=== PATIENT | male | born 1980 | race Caucasian/White ===

== ENCOUNTER 2024-12-01 10:13 | Emergency (ER) | payer BC, SELFPAY ==
[2024-12-01 10:15] VITALS: BP 132/98; PULSE 94; RESP 18; TEMP 36.8; O2SAT 96; BMI 32.8
--- NOTE | 2024-12-01 10:32 | CT_ITS ---
EXAM: CT Abdomen and Pelvis With Intravenous Contrast CLINICAL INDICATION: ABD PAIN N/V/D TECHNIQUE: Axial computed tomography images of the abdomen and pelvis with intravenous contrast. This CT exam was performed using one or more of the following dose reduction techniques: automated exposure control, adjustment of the mA and/or kV according to patient size, and/or use of iterative reconstruction technique. COMPARISON: No relevant prior studies available. FINDINGS: LUNG BASES: Unremarkable. No mass. No consolidation. MEDIASTINUM: Small esophageal hiatal hernia. ABDOMEN: LIVER: Hepatomegaly with fatty infiltration. GALLBLADDER AND BILE DUCTS: Unremarkable. No calcified stones. No ductal dilation. PANCREAS: Unremarkable. No mass. No ductal dilation. SPLEEN: Unremarkable. No splenomegaly. ADRENALS: Unremarkable. No mass. KIDNEYS AND URETERS: Unremarkable. No stones within either kidney. No hydronephrosis. STOMACH AND BOWEL: Fluid-filled nondistended small bowels may represent enteritis. No bowel obstruction or pneumoperitoneum. PELVIS: APPENDIX: No findings to suggest acute appendicitis. BLADDER: Unremarkable. No mass. REPRODUCTIVE: Unremarkable as visualized. ABDOMEN and PELVIS: INTRAPERITONEAL SPACE: See above. BONES/JOINTS: No acute fracture. No dislocation. SOFT TISSUES: Inguinal hernia, bilaterally. Umbilical hernia containing fat. VASCULATURE: Scattered calcified atherosclerotic disease of aorta. No abdominal aortic aneurysm. LYMPH NODES: Unremarkable. No enlarged lymph nodes. CT/Abdomen/Pelvis W IV Cont ONLY IMPRESSION: 1. Fluid-filled nondistended small bowels may represent enteritis. No bowel o bstruction or pneumoperitoneum. 2. Small esophageal hiatal hernia. 3. Hepatomegaly with fatty infiltration. 4. Inguinal hernia, bilaterally. 5. No obstructive uropathy. 6. Umbilical hernia containing fat. Reading [facility]
--- NOTE | 2024-12-01 10:33 | EX.ED.DYSGE1 ---
HPI History of Present Illness Chief Complaint: Abd Pain Informant: patient and spouse/S.O. Narrative Narrative: 44-year-old male presenting to the emergency room with the chief complaint of vomiting diarrhea and abdominal pain. Patient states that 2 weeks ago he began taking increased dose of Ozempic. He states he had some small GI symptoms but they resolved. Took a second dose last Sunday saw his doctor on Sunday and going into began to experience some diarrhea and nausea if occultly tolerating foods. He had significant diarrhea last night and upper abdominal pain. He denies any urinary symptoms. No fevers. has concerns for possible pancreatitis as he does drink 2-3 beers per day. He notes a umbilical hernia surgery in the past. He [facility] Medical History (Updated 12/01/24 @ 12:[address] Esau Edwards DO) GERD (gastroesophageal reflux disease) Hypertension Home Medications ?Medication ?Instructions ?Recorded ?Last Taken ?Type amlodipine 5 mg tablet 5 mg PO DAILY 12/01/24 11/30/24 History duloxetine 30 mg capsule,delayed 30 mg PO DAILY 12/01/24 Unknown History release metoclopramide HCl 10 mg tablet 10 mg PO Q6H PRN nausea and 12/01/24 Unknown Rx (Reglan) vomiting #15 tabs omeprazole 20 mg capsule,delayed 20 mg PO DAILY 12/01/24 11/30/24 History release semaglutide (weight loss) 2.4 1.2 mg subcut Q7D 12/01/24 11/24/24 History mg/0.75 mL subcutaneous pen injector Allergy/AdvReac Type Severity Reaction Status Date / Time nickel AdvReac Mild Rash Verified 12/01/24 10:15 Surgical History H/O umbilical hernia repair Social History Smoking Status: Unknown if ever smoked ROS ROS ED Constitutional Constitutional ED: Denies chills, fever(s) or weight loss Eyes Eyes: Denies change in vision or diplopia ENT ENT ED: Denies ear pain, rhinorrhea or sore throat Cardiovascular Cardiovascular: Denies chest pain, orthopnea, palpitations or racing heartbeat Respiratory/Chest Respiratory/Chest: Denies cough, dyspnea or orthopnea Gastrointestinal Gastrointestinal: Reports abdominal pain, diarrhea, nausea and vomiting Genitourinary Genitourinary ED: Denies dysuria, hematuria or urinary frequency Musculoskeletal Musculoskeletal: Denies arthralgias or myalgias Integumentary Denies abscess or rash Neurologic Neurologic: Denies headache(s) or weakness Psychiatric Psychiatric: Denies anxiety, depression, suicidal ideation or suicidal thoughts Endocrine Endocrinology: Denies polydipsia, polyphagia or polyuria Allergic/Immunologic Allergic/Immunologic ED: Denies mouth swelling, tongue swelling or urticaria EXAM Physical Exam Const Vital Signs: 12/01/24 10:15 12/01/24 12:30 Temperature 98.2 F 97.9 F Temperature Source Temporal Pulse Rate 94 71 Respiratory Rate 18 18 Blood Pressure 132/98 H 127/97 H Blood Pressure Mean 109 107 Pulse Ox 96 97 Oxygen Delivery Method Room Air Positive well nourished and well developed General Appearance ED: well developed HEENT Reports normocephalic, head/scalp atraumatic and moist mucous membranes Eyes PERRL and EOMs intact bilaterally Neck no lymphadenopathy, supple and no JVD Resp normal respiratory effort and clear to auscultation bilaterally Cardio regular rate, regular rhythm and no murmurs GI GI Narrative: Mild upper abdominal tenderness to palpation without guarding or rebound. No tympany. No palpable hernias. Inspection: Negative for abdominal distention Auscultation: normoactive bowel sounds Palpation: soft Back/Spine no CVA tenderness and normal ROM Extremity normal to inspection General Extremety ED: Negative for edema General Extremity: Negative for edema Neuro oriented x3 and CN's II-XII intact bilaterally Sensorium / Orientation: alert Motor Exam: strength 5/5 throughout Psych mental status grossly normal Mood & Affect: Negative for depressed or tearful Skin no rashes or lesions noted and no wounds MDM MDM MDM Narrative Medical decision making narrative: Differential diagnosis includes but not limited to biliary colic pancreatitis gastroenteritis medication side effects dehydration electrolyte abnormalities acute kidney injury Patient's white count nonspecific elevated at 13 was 78.1 neutrophils 11.6 lymphocytes 8.3 monocytes liver enzymes within normal limits lipase is 30 [address] of the pelvis demonstrated fluid-filled nondistended loops of bowel. Patient received Zofran as well as IV fluids. Given the above workup I do think there is a high probability this could be medication induced from his Ozempic. I can write for some Reglan at home as he already has Zofran. Advance diet slowly with liquids for the next 24 hours would recommend PCP follow-up return if worsening or concerns History & Record Review Discussion w/independent historian: Significant other Lab Data Attestation: I reviewed the patient's lab results. Labs: Laboratory Results - last 24 hr 12/01/24 10:45 WBC 13.0 H RBC 6.28 H Hgb 19.6 H* Hct 55.8 H MCV 88.9 MCH 31.2 MCHC 35.1 RDW Std Deviation 41.5 RDW Coeff of Malissa 12.7 Plt Count 249 MPV 9.4 Immature Gran % (Auto) 0.400 Neut % (Auto) 78.1 H Lymph % (Auto) 11.6 L [place] % (Auto) 8.3 Eos % (Auto) 1.4 Baso % (Auto) 0.2 Absolute Neuts (auto) 10.1 H Absolute Lymphs (auto) 1.51 Nucleated RBC % 0 Sodium 141 Potassium 4.2 Chloride 105 Carbon Dioxide 23.3 Anion Gap 13 BUN 13 Creatinine 1.16 Estim Creat Clear Calc 97.08 Est GFR (MDRD) Non-Af 79 BUN/Creatinine Ratio 11.3 Glucose 115 H Calcium 9.5 Total Bilirubin 0.55 Direct Bilirubin 0.23 AST 18 ALT 27 Alkaline Phosphatase 103 Total Protein 7.3 Albumin 4.5 Globulin 2.9 Lipase 30 Radiography Diagnostic Testing: Clinical Impression(s) from Imaging Studies Abdomen/Pelvis CT 12/01/24 10:32 IMPRESSION: 1. Fluid-filled nondistended small bowels may represent enteritis. No bowel obstruction or pneumoperitoneum. 2. Small esophageal hiatal hernia. 3. Hepatomegaly with fatty infiltration. 4. Inguinal hernia, bilaterally. 5. No obstructive uropathy. 6. Umbilical hernia containing fat. Reading Location: [facility] Discharge Plan Triage Chief Complaint: Abd Pain Other Complaint: Nausea/Vomiting/Diarrhea ED Provider: Esau Edwards Dx/Rx/DC Orders Clinical Impression: Abdominal pain, Nausea, vomiting, and diarrhea Instructions: Abdominal Pain, ED Vomit & Diarrhea [place]ons[place] Adult Prescriptions: New metoclopramide HCl [Reglan] 10 mg tablet 10 mg PO Q6H PRN (Reason: nausea and vomiting) Qty: 15 0RF No Action amlodipine 5 mg tablet 5 mg PO DAILY duloxetine 30 mg capsule,delayed release(DR/EC) 30 mg PO DAILY Patient Comments: HAS NOT STARTED YET omeprazole 20 mg capsule,delayed release(DR/EC) 20 mg PO DAILY semaglutide (weight loss) 2.4 mg/0.75 mL pen injector 1.2 mg subcut Q7D Primary Care Provider: ROBIN FRANKLIN Referrals: ROBIN FRANKLIN DO [Primary Care Provider] - As soon as possible Print Language: Portuguese Disposition Disposition: Home, Self Care Discharge Date/Time: 12/01/24 13:32
[2024-12-01] MEDS: Ondansetron 4 MG/2 ML Vial IV ×2 (10:42→12:37)
[2024-12-01] MEDS: 0.9% Normal Saline (1000mL) 1,000 ML 999 ML IV (10:42)
[2024-12-01 10:51] LABS: Absolute Lymphocyte Count 1.51 X10^3/uL (0.83-4.51); Absolute Neutrophil Count 10.1 X10^3/uL (2.0-7.7); Basophil# 0.02 X10^3/uL; Basophil% 0.2 % (0-1); Eosinophil# 0.18 X10^3/uL; Eosinophils% 1.4 % (0-5); Lymphocyte # 1.51 X10^3/ul (0.83-4.51); Lymphocyte % 11.6 % (19-41); Mean Corp Hgb Conc 35.1 g/dL (32-36); Mean Corpuscular Hgb 31.2 pg (27.0-32.0); Mean Corpuscular Volume 88.9 fL (80-94); Mean Platelet Vol. 9.4 fl (6.2-12.0); Monocyte# 1.08 X10^3/uL; Monocyte% 8.3 % (0-10); NRBC Flagged by Analyzer 0 % (0-5); Neutrophil # 10.14 X10^3/uL (2.7-7.7); Neutrophil % 78.1 % (47-70); Platelet Count 249 K/mm3 (150-450); RBC Distribution Width CV 12.7 % (11.6-14.6); RBC Distribution Width SD 41.5 fl (35.1-43.9); Red Blood Count 6.28 M/mm3 (4.6-6.2)
[2024-12-01 11:13] LABS: AST(SGOT) 18 U/L (<=37); Alanine Aminotransfer ALT/SGPT 27 U/L (<=46); Albumin, Serum 4.5 g/dL (3.5-5.0); Alkaline Phosphatase 103 U/L (40-129); Anion Gap 13 (5-15); BUN 13 mg/dL (4-19); BUN/Creat Ratio 11.3 RATIO (10-20); Bilirubin, Direct 0.23 mg/dL (0.00-0.30); Calcium,Total 9.5 mg/dL (7.6-11.0); Carbon Dioxide 23.3 mmol/L (21.0-32.0); Chloride 105 mmol/L (98-108); Creatinine, Serum 1.16 mg/dL (0.70-1.20); EST Glomerular Filtration Rate 79 (>60); Estimated Creatinine Clearance 97.08 ml/min (50-250); Globulin 2.9 g/dL (2.2-4.2); Glucose 115 mg/dL (70-99); Lipase 30 U/L (13-75); Potassium 4.2 mmol/L (3.3-5.1); Protein, Total 7.3 g/dL (5.9-8.4); Sodium Level 141 mmol/L (133-145); Total Bilirubin 0.55 mg/dL (0.00-1.30)
[2024-12-01 11:28] LABS: Hematocrit 55.8 % (40-54)
[2024-12-01 11:29] LABS: Hemoglobin 19.6 g/dL (13.0-16.5)
[2024-12-01 12:30] VITALS: BP 127/97; PULSE 71; RESP 18; TEMP 36.6; O2SAT 97
== END 2024-12-01 13:32 | disposition home or self-care (01) ==
PROVIDERS: Emergency Provider Emergency Medicine; PCP Student in an Organized Health Care Education/Training Program; Visit Provider Emergency Medicine
DX: R10.9 Unspecified abdominal pain (principal); R19.7 Diarrhea, unspecified; R11.2 Nausea with vomiting, unspecified; I10 Essential (primary) hypertension; K21.9 Gastro-esophageal reflux disease without esophagitis; Z79.85 Long-term (current) use of injectable non-insulin antidiabetic drugs; Z79.899 Other long term (current) drug therapy
CPT/HCPCS: 74177; 80048; 80076; 83690; 85025; 96361; 96374; 96376; 99283; Q9967; A4216; J2405